=== PATIENT | female | born 2005 | race Caucasian/White ===

== ENCOUNTER 2023-05-06 01:46 | Emergency (ER) | payer MEDICAID ==
[~2023-05-06] VITALS: Ht 167.6 cm; Wt 69.0 kg
[2023-05-06 01:55] VITALS: O2SAT 100
[2023-05-06 02:17] LABS: BASOPHILS % 0.4 % (0.0-2.0); EOSINOPHILS % 0.9 % (0.0-5.0); HEMATOCRIT. 35.1 % (36.0-48.0); HEMOGLOBIN. 12.2 g/dL (12.0-16.0); LYMPHOCYTES % 28.7 % (20.0-50.0); MEAN CORPUSCULAR HGB CONC 34.9 g/dL (31.0-37.0); MEAN CORPUSCULAR VOLUME 88.9 fL (81.0-99.0); MEAN PLATELET VOLUME 8.4 fl (7.4-10.4); MONOCYTES % 2.1 % (2.0-8.0); NEUTROPHILS % 67.9 % (40.0-76.0); PLATELET 213 x1000/uL (130-400); RED BLOOD CELL COUNT 3.94 mill/uL (4.2-5.4); RED CELL DISTRIBUTION WIDTH 13.5 % (11.6-14.6); WHITE BLOOD COUNT 7.9 x1000/uL (4.5-11.0)
[2023-05-06 02:24] LABS: CHLORIDE 110 mEq/L (98-107); INDEX HEMOLYSI 1 (1-3); INDEX ICTERIC 1 (1-4); INDEX LIPEMIC 1 (1-3); POTASSIUM 3.4 mEq/L (3.5-5.1); SODIUM 138 mEq/L (136-145)
[2023-05-06 02:46] LABS: ALANINE AMINOTRANSFERASE 23 IU/L (13-61); ALBUMIN 3.1 g/dL (3.4-5.0); ASPARTATE AMINOTRANSFERASE 11 IU/L (15-37); B-HCG QUANTITATIVE 19214 mIU/mL (<3); BILIRUBIN TOTAL 0.6 mg/dL (0.1-1.0); CALCIUM 8.7 mg/dL (8.5-10.1); CARBON DIOXIDE 22 mEq/L (21-32); CREATININE 0.6 mg/dL (0.6-1.3); GLUCOSE 77 mg/dL (70-105); PROTEIN TOTAL 7.1 g/dL (6.0-8.3); TROPONIN I HIGH SENSITIVITY 4 ng/L (<54); UREA NITROGEN BLOOD 5 mg/dL (7-21)
[2023-05-06] MEDS ORDERED: ACETAMINOPHEN 325MG TABLET PO ONE (06:00)
[2023-05-06 09:28] VITALS: BP 131/81; PULSE 96; RESP 18; TEMP 98
[2023-05-06] MEDS ORDERED: IOHEXOL-350 100 ML BOTTLE ONE (12:45)
== END 2023-05-06 13:27 | disposition home or self-care (01) ==
LOC: ER 01:46 → EDBEDREQTM 08:26 → EDBEDREQ 08:26 → CANBEDREQ 13:01 → ER 13:27
DX: R07.89 Other chest pain (principal)
CPT/HCPCS: 99285; 71275; 76805; 71045; 80053; 84702; 83880; 85025; 85379; 84484; 36415; 93005; Q9967